=== PATIENT | male | born 1990 | race Caucasian/White ===

== ENCOUNTER 2022-04-08 08:35 | Emergency (ER) | payer OTHER ==
[~2022-04-08] VITALS: Ht 177.8 cm; Wt 79.4 kg
--- NOTE | 2022-04-08 08:45 | NUR ---
visual acuity test performed
[2022-04-08] MEDS ORDERED: FLUORESCEIN SODIUM OPHTH 1 EA STRIP ONE (08:48)
--- NOTE | 2022-04-08 08:48 | NUR ---
Received pt 31 yrs male came from home c/o redness and pain on lt eye 10 days awake and alert
--- NOTE | 2022-04-08 09:05 | NUR ---
performed eye exam.
--- NOTE | 2022-04-08 09:48 | NUR ---
TO CT SCAN OF HEAD
--- NOTE | 2022-04-08 11:05 | NUR ---
Patient discharged to home in stable condition. Written and verbal after care instructions given. Patient verbalizes understanding of instruction.
[2022-04-08 11:06] VITALS: BP 130/70
== END 2022-04-08 11:06 | disposition home or self-care (01) ==
LOC: ER 08:35
DX: H57.12 Ocular pain, left eye (principal); H54.7 Unspecified visual loss; Z60.2 Problems related to living alone
CPT/HCPCS: 70480-TC

== ENCOUNTER 2022-06-26 14:54 | Emergency (ER) | payer OTHER ==
[~2022-06-26] VITALS: Ht 172.7 cm; Wt 77.1 kg
--- NOTE | 2022-06-26 15:41 | NUR ---
Judi, had an uber drive him here due to pain in right shoulder and right upper arm area
[2022-06-26] MEDS ORDERED: CYCL5TAB PO (17:36)
[2022-06-26] MEDS ORDERED: IBUP-1955 PO (17:36)
[2022-06-26 18:06] VITALS: BP 110/64
--- NOTE | 2022-06-26 18:06 | NUR ---
IV STOP TIME 1808
== END 2022-06-26 18:07 | disposition home or self-care (01) ==
LOC: ER 15:00
DX: S46.911A Strain of unspecified muscle, fascia and tendon at shoulder and upper arm level, right arm, initial encounter (principal); M54.40 Lumbago with sciatica, unspecified side; Z60.2 Problems related to living alone; X58.XXXA Exposure to other specified factors, initial encounter; Y93.89 Activity, other specified; Y92.89 Other specified places as the place of occurrence of the external cause; Y99.8 Other external cause status
CPT/HCPCS: 73030-TC

== ENCOUNTER 2022-08-24 20:02 | Emergency (ER) | payer OTHER ==
[~2022-08-24] VITALS: Ht 177.8 cm; Wt 77.1 kg
[~2022-08-24 20:02] MED LIST: CYCL5TAB PO; IBUP-1955 PO
[2022-08-24 20:17] VITALS: BP 124/67
--- NOTE | 2022-08-24 20:28 | NUR ---
DR CAYDEN PABLO AT PT'S BEDSIDE FOR EVAL
[2022-08-24] MEDS ORDERED: KETOROLAC TROMETHAMINE INJ 30 MG/ML VIAL ONE (20:51)
[2022-08-24] MEDS ORDERED: CYCLOBENZAPRINE 10 MG TABLET ONE (20:51)
[2022-08-24] MEDS ORDERED: CYCL5TAB PO (20:53)
[2022-08-24] MEDS ORDERED: KETOROLAC TROMETHAMINE INJ 60 MG/2 ML VIAL IM ONE (21:00)
[2022-08-24] MEDS ORDERED: CYCLOBENZAPRINE 10 MG TABLET PO ONE (21:00)
== END 2022-08-24 21:00 | disposition home or self-care (01) ==
LOC: ER 20:15
DX: M54.50 Low back pain, unspecified (principal); Z79.1 Long term (current) use of non-steroidal anti-inflammatories (NSAID); Z79.899 Other long term (current) drug therapy
CPT/HCPCS: 99283; 96372; J1885